=== PATIENT | female | born 1985 | race Caucasian/White ===

== ENCOUNTER 2016-12-17 10:36 | Outpatient (CLI) | payer SELFPAY ==
[2016-07-18 22:06] VITALS: BP 127/78
--- NOTE | 2016-12-17 13:59 | Diagnostic Imaging Report ---
GINA DUDLEY [facility] [id number] [facility] [address] [id number] Report Submission Date: Dec 17, 2016 11:47:09 AM CDT Patient Study Name: TRENTON LERNER Date: Dec 17, 2016 10:53:31 AM CDT Modality Type: CR Gender: F Description: LOWER EXTREMITY : 89 Institution: [facility] Physician: GINA DUDLEY Right ankle -three views CLINICAL HISTORY: Pain after walking 2 weeks ago. FINDINGS: Examination right ankle in AP, lateral and oblique views fails to demonstrate evidence of fracture or dislocation. Small calcaneal spur is seen at the site of insertion of the Achilles tendon. Ankle mortise is anatomic. IMPRESSION: Calcaneal spur. No fracture. Electronically signed on Dec 17, 2016 11:47:09 AM CDT by: Sergio ART
== END 2016-12-17 10:37 ==
LOC: RAD 10:36
PROVIDERS: ATTEND Physician Assistant
DX: S99.911A Unspecified injury of right ankle, initial encounter (principal); X58.XXXA Exposure to other specified factors, initial encounter; Y93.9 Activity, unspecified; Y99.9 Unspecified external cause status
CPT/HCPCS: 73610